=== PATIENT | male | born 1940 | race Caucasian/White ===

== ENCOUNTER 2023-06-29 10:40 | Day surgery (SDC) | payer MEDICARE, OTHER ==
[2023-06-29] MEDS ORDERED: XYLOCAINE-MPF 1% 5ML SDV IJ ONE (10:41)
[2023-06-29] MEDS ORDERED: Depo-Medrol 40 MG/ML IM ONE (10:41)
[2023-06-29] MEDS ORDERED: BUPIVACAINE 0.5% VIAL IJ ONE (10:41)
--- NOTE | 2023-06-29 14:05 | XRAY ---
Indication: Bilateral SI joint injection. Intraoperative fluoroscopy provided for 18 seconds. 4 digital spot images submitted for interpretation demonstrates posterior needle tip projecting over the expected left and right SI joint. Correlate with intraoperative findings/report.
--- NOTE | 2023-06-29 15:06 | XRAY ---
18 seconds of fluoroscopy was used in surgery for a bilateral sacroiliac joint injection.
== END 2023-06-29 13:49 | disposition home or self-care (01) ==
LOC: SDC-PAIN 10:40
PROVIDERS: ATTEND Psychiatry & Neurology Pain Medicine
DX: M46.1 Sacroiliitis, not elsewhere classified (principal)
CPT/HCPCS: 27096; 72202; 77002; G0260; J1030

== ENCOUNTER 2024-02-22 12:42 | Day surgery (SDC) | payer MEDICARE, OTHER ==
[2024-02-22] MEDS ORDERED: Depo-Medrol 40 MG/ML IM ONE (12:43)
[2024-02-22] MEDS ORDERED: BUPIVACAINE 0.5% VIAL IJ ONE (12:43)
[2024-02-22] MEDS ORDERED: DIPRIVAN 200 MG/20 ML IV ONE (14:40)
[2024-02-22] MEDS ORDERED: Lactated Ringers 1,000 ML IV ONE (15:03)
--- NOTE | 2024-02-22 15:08 | XRAY ---
Indication: Bilateral L2-L4 MBB. Intraoperative fluoroscopy provided for 13 seconds. Single digital spot image submitted for interpretation demonstrates posterior needle tips projecting over the expected left and right L2-L4 nerve roots. Correlate with intraoperative findings/report.
--- NOTE | 2024-02-22 15:14 | XRAY ---
13 seconds of fluoroscopy was used in surgery for a bilateral L2-L4 MBB.
== END 2024-02-22 15:15 | disposition home or self-care (01) ==
LOC: SDC-PAIN 12:42
PROVIDERS: ATTEND Psychiatry & Neurology Pain Medicine
DX: M47.816 Spondylosis without myelopathy or radiculopathy, lumbar region (principal)
CPT/HCPCS: 64493; 64494; 72020; 77002; J2704

== ENCOUNTER 2024-03-28 13:14 | Day surgery (SDC) | payer MEDICARE, OTHER ==
[2024-03-28] MEDS ORDERED: LIDOCAINE HCL 1% 50 MG/5 ML VL PF IJ ONE (13:15)
[2024-03-28] MEDS ORDERED: Depo-Medrol 40 MG/ML IM ONE (13:15)
[2024-03-28] MEDS ORDERED: BUPIVACAINE 0.5% VIAL IJ ONE (13:15)
[2024-03-28] MEDS ORDERED: DIPRIVAN 200 MG/20 ML IV ONE (14:24)
[2024-03-28] MEDS ORDERED: Lactated Ringers 1,000 ML IV ONE (14:37)
--- NOTE | 2024-03-28 14:57 | XRAY ---
Indication: Right L2-L4 RFA. Intraoperative fluoroscopy provided for 23 seconds. 4 digital spot image submitted for interpretation demonstrates posterior needle tips projecting over the expected right L2-L4 nerve roots. Correlate with intraoperative findings/report.
--- NOTE | 2024-03-28 17:12 | XRAY ---
23 seconds of fluoroscopy was used in surgery for a right L2-L4 RFA.
== END 2024-03-28 15:00 | disposition home or self-care (01) ==
LOC: SDC-PAIN 13:14
PROVIDERS: ATTEND Psychiatry & Neurology Pain Medicine
DX: M47.816 Spondylosis without myelopathy or radiculopathy, lumbar region (principal)
CPT/HCPCS: 64635; 64636; 72100; 77002; 99100; J2001; J2704

== ENCOUNTER 2024-04-04 13:12 | Day surgery (SDC) | payer MEDICARE, OTHER ==
[2024-04-04] MEDS ORDERED: BUPIVACAINE 0.5% VIAL IJ ONE (13:13)
[2024-04-04] MEDS ORDERED: Depo-Medrol 40 MG/ML IM ONE (13:13)
[2024-04-04] MEDS ORDERED: LIDOCAINE HCL 1% 50 MG/5 ML VL PF IJ ONE (13:13)
[2024-04-04] MEDS ORDERED: Lactated Ringers 1,000 ML IV ONE (14:22)
[2024-04-04] MEDS ORDERED: DIPRIVAN 200 MG/20 ML IV ONE (14:35)
--- NOTE | 2024-04-04 15:06 | XRAY ---
Indication: Left L2-L4 RFA Intraoperative fluoroscopy provided for 20 seconds. 7 digital spot image submitted for interpretation demonstrates posterior needle tips projecting over the expected left L2-L4 nerve roots. Correlate with intraoperative findings/report.
--- NOTE | 2024-04-04 16:40 | XRAY ---
20 seconds of fluoroscopy was used in surgery for a left L2-L4 RFA.
== END 2024-04-04 14:55 ==
LOC: SDC-PAIN 13:12
PROVIDERS: ATTEND Psychiatry & Neurology Pain Medicine
DX: M47.816 Spondylosis without myelopathy or radiculopathy, lumbar region (principal); M47.817 Spondylosis without myelopathy or radiculopathy, lumbosacral region
CPT/HCPCS: 64635; 64636; 72100; 77002; 99100; J2001; J2704

== ENCOUNTER 2024-05-23 12:52 | Day surgery (SDC) | payer MEDICARE, OTHER ==
[2024-05-23] MEDS ORDERED: BUPIVACAINE 0.5% VIAL IJ ONE (12:53)
[2024-05-23] MEDS ORDERED: Depo-Medrol 40 MG/ML IM ONE (12:53)
[2024-05-23] MEDS ORDERED: DIPRIVAN 200 MG/20 ML IV ONE (14:23)
--- NOTE | 2024-05-23 16:24 | XRAY ---
Indication: Bilateral SI joint injection. Intraoperative fluoroscopy provided for 22 seconds. 3 digital spot image submitted for interpretation demonstrates posterior needle tips projecting over the left and right SI joint. Small amount of contrast injected for both needle tip placement. Correlate with intraoperative findings/report.
--- NOTE | 2024-05-23 16:30 | XRAY ---
22 seconds of fluoroscopy was used in surgery for a bilateral sacroiliac joint injection.
== END 2024-05-23 14:50 | disposition home or self-care (01) ==
LOC: SDC-PAIN 12:52
PROVIDERS: ATTEND Psychiatry & Neurology Pain Medicine
DX: M46.1 Sacroiliitis, not elsewhere classified (principal)
CPT/HCPCS: 27096; 72202; 77002; G0260; 99100; J2704; Q9966

== ENCOUNTER 2025-04-24 11:48 | Day surgery (SDC) | payer MEDICARE, OTHER ==
[2025-04-24] MEDS ORDERED: methylPREDNISolone acetate IM ONE (11:49)
[2025-04-24] MEDS ORDERED: LIDOCAINE HCL 1% 50 MG/5 ML VL IJ ONE (11:49)
[2025-04-24] MEDS ORDERED: Sensorcaine 0.25% 10 ML IJ ONE (11:49)
[2025-04-24] MEDS ORDERED: propofoL IV ONE (13:56)
--- NOTE | 2025-04-24 16:34 | XRAY ---
Indication: Right L4-S1 RFA. Intraoperative fluoroscopy provided for 22 seconds. 6 digital spot image submitted for interpretation demonstrates posterior needle tips projecting over expected right L4-S1 nerve roots. Correlate with intraoperative findings/report.
--- NOTE | 2025-04-24 16:40 | XRAY ---
22 seconds of fluoroscopy used in surgery for a right L4-S1 RFA.
== END 2025-04-24 14:38 | disposition home or self-care (01) ==
LOC: SDC-PAIN 11:48
PROVIDERS: ATTEND Psychiatry & Neurology Pain Medicine
DX: M47.817 Spondylosis without myelopathy or radiculopathy, lumbosacral region (principal); R73.03 Prediabetes

== ENCOUNTER 2025-05-08 11:38 | Day surgery (SDC) | payer MEDICARE, OTHER ==
[2025-05-08] MEDS ORDERED: LIDOCAINE HCL 1% 50 MG/5 ML VL IJ ONE (11:39)
[2025-05-08] MEDS ORDERED: BUPIVACAINE 0.5% VIAL IJ ONE (11:39)
[2025-05-08] MEDS ORDERED: methylPREDNISolone acetate IM ONE (11:39)
--- NOTE | 2025-05-08 15:18 | XRAY ---
Indication: Left L4-S1 RFA. Intraoperative fluoroscopy provided for 19 seconds. 4 digital spot image submitted for interpretation demonstrates posterior needle tips projecting over expected left L4-S1 nerve roots. Correlate with intraoperative findings/report.
--- NOTE | 2025-05-08 16:56 | XRAY ---
19 seconds of fluoroscopy was used in surgery for a left L4-S1 RFA.
[2025-05-08] MEDS ORDERED: Lactated Ringers 1,000 ML IV ONE (17:16)
== END 2025-05-08 14:20 | disposition home or self-care (01) ==
LOC: SDC-PAIN 11:38
PROVIDERS: ATTEND Psychiatry & Neurology Pain Medicine
DX: M47.817 Spondylosis without myelopathy or radiculopathy, lumbosacral region (principal); R73.03 Prediabetes